=== PATIENT | female | born 1990 | race Caucasian/White ===

== ENCOUNTER 2017-10-25 22:28 | Emergency (ER) | payer OTHER ==
[~2017-10-25] VITALS: Ht 165.1 cm; Wt 70.3 kg
[2017-10-25 22:51] VITALS: BP 119/78
== END 2017-10-26 00:06 | disposition admitted as inpatient to this hospital (09) ==
LOC: ERH 22:28
DX: R07.9 Chest pain, unspecified (principal)
CPT/HCPCS: 93005; 93010; 99281